=== PATIENT | male | born 1980 | race Caucasian/White ===

== ENCOUNTER 2016-08-12 20:27 | Emergency (ER) | payer OTHER ==
[~2016-08-12] VITALS: Ht 167.6 cm; Wt 84.1 kg
[2016-08-12 20:39] VITALS: BP 152/87; TEMP 98.1
[2016-08-12] MEDS ORDERED: DESYREL 50MG50 MG PO (20:42)
[2016-08-12] MEDS ORDERED: PRILOSEC 20MG20 MG PO (20:42)
[2016-08-12] MEDS ORDERED: MOTRIN 600600 MG/TAB PO (20:42)
[2016-08-12] MEDS ORDERED: NORCO 325 MG-51 TAB PO (21:31)
[2016-08-12 22:11] VITALS: PULSE 72
== END 2016-08-12 22:12 | disposition home or self-care (01) ==
LOC: COL.ER 20:27
DX: S62.525A Nondisplaced fracture of distal phalanx of left thumb, initial encounter for closed fracture (principal); W18.30XA Fall on same level, unspecified, initial encounter; Y92.830 Public park as the place of occurrence of the external cause